=== PATIENT | female | born 1935 | race American Indian/Alaskan Native ===

== ENCOUNTER 2018-12-14 12:38 | Emergency (ER) | payer MEDICARE ==
[2018-12-14] MEDS ORDERED: PANTOPRAZOLE 40 MG INJ IV ONE (12:58)
[2018-12-14] MEDS ORDERED: SODIUM CHLORIDE 0.9% 500 ML 500 ML IV ONE (13:01)
--- NOTE | 2018-12-14 13:04 | Emergency Department Report ---
ED General Adult HPI - General Chief complaint: Cardiac Arrest/CPR Stated complaint: CARDIAC ARREST Time Seen by Provider: 12/14/18 12:57 Source: EMS (verbal report received from EMS.ems notes not available at time of chart dictation), RN notes reviewed Mode of arrival: Stretcher Limitations: Altered Mental Status, Physical Limitation - History of Present Illness Initial comments: This is an 83-year-old female. This patient is not known to this provider previously. The patient is brought to the hospital by emergency medical services as out of hospital cardiac arrest. EMS reports that emergency medical services were activated for chief complaint of shortness of breath. Apparently, upon first medical contact, the patient arrested. EMS unable to intubate, and placed a Casey airway. EMS indicates rhythm is pulseless electrical activity. EMS indicates down time approximately one half hour prior to arrival to the emergency room. During this time, they're providing high-quality CPR, and standard ACLS medications. Furthermore, the patient had copious coffee-ground emesis in the field. They indicate Accu-Chek was approximately 190. Upon arrival to the ER, the patient is pulseless, receiving active CPR. Casey airway in place, coffee-ground emesis noted around head and oropharynx. While in the emergency room, pulses are obtained. A code STEMI is called overhead, after initial EKG is evaluated. The EKG shows ST elevation in aVR, and diffuse ST depression, suggestive of triple vessel disease, global ischemia, left main coronary artery disease. The EKG was transmitted to our school librarian, Dr. 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 Given presence of coffee-ground emesis, and presumed active upper GI bleed, patient not a candidate for thrombolysis, or anticoagulants. Emergent CT scan of the brain and chest were ordered. Unfortunately, patient lost pulses shortly thereafter. CPR reinitiated, however, pulses were not able to be reobtained. Resuscitation efforts were terminated secondary to medical futility. Aforementioned cardiology consult is canceled. -: This morning Quality: other Consistency: other Improves with: other Worsens with: other - Related Data Allergies Allergy/AdvReac Type Severity Reaction Status Date / Time Unable to Assess Allergy Unverified 12/14/18 12:53 ED Review of Systems ROS: Stated complaint: CARDIAC ARREST Other details as noted in HPI Comment: Unobtainable due to pts medical conditions ED Physical Exam - General Limitations: Physical Limitation General appearance: obtunded - Head Head exam: Present: atraumatic - Eye Eye exam: Present: other (pupils fixed and dilated, and they do not react to light) - ENT ENT exam: Present: mucous membranes dry, other (copious coffee-ground emesis is noted in oropharynx) - Neck Neck exam: Present: normal inspection - Respiratory Respiratory exam: Present: rhonchi - Cardiovascular Cardiovascular Exam: Present: tachycardia - GI/Abdominal GI/Abdominal exam: Present: soft, distended - Rectal Rectal exam: Present: normal inspection - Extremities Exam Extremities exam: Present: other (patient has contorted lower extremities, and contractures.). Absent: normal inspection - Back Exam Back exam: Absent: tenderness, CVA tenderness (R), paraspinal tenderness, vertebral tenderness - Neurological Exam Neurological exam: Present: altered, other (GCS of 3, advanced airway in place) - Psychiatric Psychiatric exam: Present: other (patient is nonverbal) - Skin Skin exam: Present: dry - EJ/Peripheral Line Neck L Time Out Performed: Yes Indications: multiple IV sites needed Skin Cleansed in Sterile Fashion: Yes Size: 18 Dressing Placed: Tegaderm Patient Tolerated Procedure: well - Intubation Time Out Performed: No (emergency situation) Laryngoscope: Maude Size: 4 ET Tube Size: 7.5 Tube Secured Depth (cm): 24 Tube Secured Location: teeth Tube Placement Confirmation: visualized tube passing t, equal breath sounds bilat, no breath sounds over epi, confirmation by capnometr Patient Tolerated Procedure: well Intubation Complications: none ED Medical Decision Making - EKG Data When compared to previous EKG there are: previous EKG unavailable Interpretation: acute OH 12/14/18 13:25 There is no prior EKG available for comparison. This is a sinus rhythm, 85 bpm, there is ST elevation in aVR, diffuse ST depression, suggestive of STEMI versus global ischemia versus triple vessel disease versus left main coronary artery occlusion Critical Care Time: Yes Critical care time in (mins) excluding proc time.: 35 Critical care attestation.: If time is entered above; I have spent that time in minutes in the direct care of this critically ill patient, excluding procedure time. ED Disposition Clinical Impression: Cardiac arrest, Coffee ground emesis, Abnormal EKG Disposition: DC-20 Is pt being admited?: No Does the pt Need Aspirin: No Condition: Stable
[2018-12-14 13:50] VITALS: BP 111/60
[2018-12-14] MEDS ORDERED: PANTOPRAZOLE 80 MG in SODIUM CHLORIDE 0.9% 100 ML IV SCH (14:00)
[2018-12-14] MEDS ORDERED: SODIUM BICARB 8.4% 50 MEQ/50 ML SYRINGE IV ONE (16:35)
[2018-12-14] MEDS ORDERED: EPINEPHrine 1:10,000 1 MG/10 ML SYRINGE ONE (16:35)
== END 2018-12-14 17:30 ==
LOC: EDBD → ED 12:38
DX: I46.9 Cardiac arrest, cause unspecified (principal)
CPT/HCPCS: 31500; 36556; 92950; 93005; 93010; 99291; J0171